=== PATIENT | female | born 1960 | race American Indian/Alaskan Native ===

== ENCOUNTER 2017-06-27 12:16 | Day surgery (SDC) | payer BC ==
[~2017-06-27] VITALS: Ht 157.5 cm; Wt 69.2 kg
[2017-06-27] MEDS ORDERED: ESTR2 (13:22)
[2017-06-27] MEDS ORDERED: Lisinopril2.5 MG (13:23)
[2017-06-27] MEDS ORDERED: LEVSOD50 (13:23)
[2017-06-27] MEDS ORDERED: FOLI1 (13:23)
[2018-05-16] MEDS ORDERED: ETAN50I (13:27)
[2018-05-16] MEDS ORDERED: GABA400 (13:28)
[2018-05-24] MEDS ORDERED: METTREX2.5 PO (14:38)
== END 2017-06-27 15:13 | disposition home or self-care (01) ==
LOC: ORSCSDS 12:16
PROVIDERS: Internal Medicine Gastroenterology
PROC: 0DBL8ZX Excision of Transverse Colon, Via Natural or Artificial Opening Endoscopic, Diagnostic (ICD-10-PCS; principal; 2017-06-27 13:45)
PROC: 0DBP8ZX Excision of Rectum, Via Natural or Artificial Opening Endoscopic, Diagnostic (ICD-10-PCS; principal; 2017-06-27 13:45)
DX: Z12.11 Encounter for screening for malignant neoplasm of colon (principal); D12.3 Benign neoplasm of transverse colon; K62.1 Rectal polyp; K64.8 Other hemorrhoids; Z86.010 Personal history of colon polyps; I10 Essential (primary) hypertension; E03.9 Hypothyroidism, unspecified; D64.9 Anemia, unspecified; Z79.899 Other long term (current) drug therapy
CPT/HCPCS: 88305